=== PATIENT | male | born 1980 | race Caucasian/White ===

== ENCOUNTER 2016-06-19 21:27 | Emergency (ER) | payer MEDICARE, OTHER ==
[~2016-06-19] VITALS: Ht 180.3 cm; Wt 79.4 kg
[~2016-06-19 21:27] MED LIST: AMOX1TAB61 PO; NAPR500T PO
[2016-06-19 22:49] VITALS: BP 126/58
[2016-06-20] MEDS ORDERED: HYDR-971 PO
--- NOTE | 2016-06-20 | PHYS DOC ---
Past Medical History Past Medical History: No Pertinent History Past Surgical History: No Surgical History Alcohol Use: None Drug Use: None Adult General Chief Complaint Chief Complaint: UPPER EXTREMITY INJURY [facility] HPI Patient is a 36 year old male presents emergency room with a complaint of left shoulder and left elbow pain secondary to a fall approximately one and half to 2 weeks ago. Patient reports he is right-hand dominant. Patient denies any previous injuries to his left shoulder or left elbow. Patient has any history of bone forming disorders or arthritide's. Review of Systems Review of Systems Constitutional: Denies fever or chills [] Eyes: Denies change in visual acuity, redness, or eye pain [] HENT: Denies nasal congestion or sore throat [] Respiratory: Denies cough or shortness of breath [] Cardiovascular: No additional information not addressed in HPI [] GI: Denies abdominal pain, nausea, vomiting, bloody stools or diarrhea [] : Denies dysuria or hematuria [] Musculoskeletal: Denies back pain or joint pain [] Integument: Denies rash or skin lesions [] Neurologic: Denies headache, focal weakness or sensory changes [] Endocrine: Denies polyuria or polydipsia [] Allergies Allergies Allergies Coded Allergies Type Severity Reaction Last Updated Verified No Known Drug Allergies 01/21/16 No Physical Exam Physical Exam Constitutional: Well developed, well nourished, no acute distress, non-toxic appearance. Patient appears somewhat mentally handicapped based on his slow responses and processes with conversations. HENT: Normocephalic, atraumatic, bilateral external ears normal, oropharynx moist, no oral exudates, nose normal. [] Eyes: PERRLA, EOMI, conjunctiva normal, no discharge. [] Neck: Normal range of motion, no tenderness, supple, no stridor. [] Cardiovascular:Heart rate regular rhythm, no murmur [] Lungs & Thorax: Bilateral breath sounds clear to auscultation [] Abdomen: Bowel sounds normal, soft, no tenderness, no masses, no pulsatile masses. [] Skin: Warm, dry, no erythema, no rash. [] Back: No tenderness, no CVA tenderness. [] Extremities: Left shoulder, upper arm and elbow are normal in appearance. There is tenderness to palpation to the posterior lateral aspect of patient's left shoulder without palpable defect, deformity, instability or crepitus. Patient's left elbow with mild tenderness in the region of the lateral epicondylar region. Again, there is no palpable defect, deformity, instability or crepitus. Patient winces in pain when performing abduction and circumduction. He is able to perform it but complains of pain when doing so. He also complains of pain with flexion and extension at the elbow. Patient is able to perform these maneuvers. However, we'll stop when feeling the pain. Left upper extremity is neurovascularly intact with capillary refill less than 2 seconds in the fingers. Neurologic: Alert and oriented X 3, normal motor function, normal sensory function, no focal deficits noted. [] Psychologic: Affect normal, judgement normal, mood normal. [] Current Patient Data Vital Signs Vital Signs Date Time Temp Pulse Resp B/P Pulse Ox O2 Delivery O2 Flow Rate FiO2 06/19/16 22:49 98.2 78 18 96 Room Air 98.2 EKG EKG [] Radiology/Procedures Radiology/Procedures 3 views of patient's left shoulder and left elbow were performed with adequate technique. There is no evidence of acute bony injury pathologic soft tissue swelling. Course & Med Decision Making Course & Med Decision Making Patient was placed in a sling. He was educated on the possibility of a soft tissue injury and shoulder and recommendation for follow-up with orthopedics.] Dragon Disclaimer Dragon Disclaimer This electronic medical record was generated, in whole or in part, using a voice recognition dictation system. Departure Departure Impression: Primary Impression: Shoulder injury Disposition: 01 HOME, SELF-CARE Condition: GOOD Referrals: NO PCP (PCP) NIKO WHITE MD Patient Instructions: Arm Sling Use-Brief, Shoulder Pain, [id number] Additional Instructions: 1. The x-rays of your left shoulder and left elbow here today are normal. This does not exclude the possibility of a soft tissue injury to your shoulder. 2. Use a sling to rest your arm and shoulder. 3. Take the medication as prescribed. 4. Review the discharge instructions on reasons to return to the emergency department. 5. Call the orthopedic doctors number listed in this paperwork in the morning to schedule follow-up appointment for reevaluation. Scripts Hydrocodone/Apap 5-325 (Leola 5-325 Tablet)1 Each Tablet1 Tab PO PRN Q6HRS PRN PAIN #15 TAB Prov:NAS QURESHI 06/20/16 NAS QURESHI Jun 20, 2016 00:00
--- NOTE | 2016-06-20 08:03 | RAD ---
Indication persistent pain associated with a fall 2 weeks earlier. AP lateral and oblique views of the left elbow were obtained. No bony abnormality is seen. Significant joint fluid is not present
--- NOTE | 2016-06-20 08:05 | RAD ---
Indication persistent pain associated with a fall 2 weeks previously. Internally and externally rotated views of the left shoulder as well as a Y view were obtained. No bony abnormality is seen
== END 2016-06-20 00:08 | disposition home or self-care (01) ==
LOC: ER 21:27
DX: S49.92XA Unspecified injury of left shoulder and upper arm, initial encounter (principal); W19.XXXA Unspecified fall, initial encounter; Y93.89 Activity, other specified; Y99.8 Other external cause status; Y92.89 Other specified places as the place of occurrence of the external cause
CPT/HCPCS: 73030; 73080; 99284

== ENCOUNTER 2017-02-27 22:10 | Emergency (ER) | payer MEDICARE, OTHER ==
[~2017-02-27] VITALS: Ht 175.3 cm; Wt 81.6 kg
[~2017-02-27 22:10] MED LIST changes: +HYDR-971 PO
[2017-02-27 23:04] VITALS: BP 99/59
[2017-02-27] MEDS ORDERED: IBUPROFEN 800 MG TABLET. PO ONE (23:55)
[2017-02-27] MEDS ORDERED: HYDROcodone/APAP 5/325MG 1 TAB TABLET PO ONE (23:55)
[2017-02-27] MEDS ORDERED: CYCLOBENZAPRINE 10 MG TABLET. PO ONE (23:55)
[2017-02-27] MEDS ORDERED: METH-37 PO (23:56)
[2017-02-27] MEDS ORDERED: METH4TAB2 PO (23:56)
[2017-02-27] MEDS ORDERED: AMOX875T PO (23:56)
[2017-02-27] MEDS ORDERED: TRAM-48 PO (23:56)
--- NOTE | 2017-02-27 23:56 | PHYS DOC ---
Past Medical History Past Medical History: No Pertinent History Past Surgical History: No Surgical History Alcohol Use: None Drug Use: None Adult General Chief Complaint Chief Complaint: BACK PAIN - NO INJURY HPI HPI Patient is a 36 year old male with no significant medical history who presents today with chronic low back pain, sore throat and a cough that began 3 days ago. Patient states he has had subjective fevers. Patient denies any injuries. Denies any pain radiating to bilateral lower extremities. Denies any loss of bowel bladder function. Review of Systems Review of Systems Constitutional: fever Eyes: Denies change in visual acuity, redness, or eye pain [] HENT: sore throat [] Respiratory: cough Cardiovascular: No additional information not addressed in HPI [] GI: Denies abdominal pain, nausea, vomiting, bloody stools or diarrhea [] : Denies dysuria or hematuria [] Musculoskeletal: back pain Integument: Denies rash or skin lesions [] Neurologic: Denies headache, focal weakness or sensory changes [] Current Medications Current Medications Current Medications Medications (Trade) Dose Ordered Sig/Soila Start Time Stop Time Status Last Admin Dose Admin Acetaminophen/ Hydrocodone Bitart (Lortab 5/325) 2 tab 1X ONCE 02/27/17 23:45 02/27/17 23:46 UNV Cyclobenzaprine HCl (Flexeril) 10 mg 1X ONCE 02/27/17 23:45 02/27/17 23:46 UNV Ibuprofen (Motrin) 800 mg 1X ONCE 02/27/17 23:45 02/27/17 23:46 UNV Allergies Allergies Allergies Coded Allergies Type Severity Reaction Last Updated Verified No Known Drug Allergies 01/21/16 No Physical Exam Physical Exam Constitutional: Well developed, well nourished, no acute distress, non-toxic appearance. [] HENT: Normocephalic, atraumatic, bilateral external ears normal, oropharynx moist, no oral exudates, nose normal. [] mildly enlarged uvula with petechia Eyes: PERRLA, EOMI, conjunctiva normal, no discharge. [] Neck: Normal range of motion, no tenderness, supple, no stridor. [] Cardiovascular:Heart rate regular rhythm, no murmur [] Lungs & Thorax: Bilateral breath sounds clear to auscultation [] Abdomen: Bowel sounds normal, soft, no tenderness, no masses, no pulsatile masses. [] Skin: Warm, dry, no erythema, no rash. [] Back: Diffuse paraspinal muscle tenderness to the lumbar spine, no midline lumbar spine tenderness, no CVA tenderness. [] Extremities: No tenderness, no cyanosis, no clubbing, ROM intact, no edema. [] Neurologic: Alert and oriented X 3, normal motor function, normal sensory function, no focal deficits noted. [] Psychologic: Affect normal, judgement normal, mood normal. [] Current Patient Data Vital Signs Vital Signs Date Time Temp Pulse Resp B/P (MAP) Pulse Ox O2 Delivery O2 Flow Rate FiO2 02/27/17 23:04 101.7 81 20 97 Room Air 101.7 EKG EKG [] Radiology/Procedures Radiology/Procedures [] Course & Med Decision Making Course & Med Decision Making Pertinent Labs and Imaging studies reviewed. (See chart for details) Patient is in the ED with complaints of a sore throat and subjective fevers coughing and exacerbation of chronic low back pain. Temperature on arrival to the ED was 101.7, posterior pharynx with petechia. Patient was discharged with amoxicillin for 10 days. Discharged with Medrol Dosepak, discharged with Ultram and Robaxin for chronic back pain. Saltwater gargles recommended. Tessalon Perles for cough. Follow-up with primary care doctor in 1-2 weeks. Scot Disclaimer Scot Disclaimer This electronic medical record was generated, in whole or in part, using a voice recognition dictation system. Departure Departure Impression: Primary Impression: Cough Additional Impressions: Fever Pharyngitis, acute Back pain Disposition: 01 HOME, SELF-CARE Condition: STABLE Referrals: NO PCP (PCP) follow up with your doctor in one week or a doctor from the list provided Patient Instructions: Back Pain, Adult, Cough, Adult, [id number], Fever, Adult, Viral and Bacterial Pharyngitis Additional Instructions: You were seen for exacerbation of chronic back pain, sore throat, fever and coughing. Follow-up with your doctor or a doctor from the list provided in the next 7 days. Take Tylenol/ Motrin for fever. Take the prescribed medicines for back pain. Complete your antibiotics. Scripts Amoxicillin (AMOXICILLIN) 875 Mg Tablet 1 TAB PO BID, #20 TAB Prov: JENNA BERKOWITZ [employer]OR 02/27/17 Methylprednisolone (MEDROL) 4 Mg Tab.ds.pk 1 PKG PO UD, #1 PKG Prov: JENNA BERKOWITZ MAINE 02/27/17 Methocarbamol (ROBAXIN) 500 Mg Tablet 1 TAB PO TID, #30 TAB Prov: JENNA BERKOWITZ [employer] V[employer]OR 02/27/17 Tramadol Hcl (ULTRAM) 50 Mg Tablet 1 TAB PO Q6HRS, #30 TAB Prov: JENNA BERKOWITZ MAINE 02/27/17 Problem Qualifiers Additional Impressions: Fever Fever type: unspecified Qualified Codes: R50.9 - Fever, unspecified Pharyngitis, acute Pharyngitis/tonsillitis etiology: unspecified etiology Qualified Codes: J02.9 - Acute pharyngitis, unspecified Back pain Back pain location: low back pain Chronicity: chronic Back pain laterality : bilateral Sciatica presence: without sciatica Qualified Codes: M54.5 - Low back pain; G89.29 - Other chronic pain JENNA BERKOWITZ MAINE Feb 27, 2017 23:56
[2017-02-27] MEDS ORDERED: BENZ100C PO (23:58)
[2017-02-28 07:37] LABS: NEGATIVE OBC STREP NEG; POSITIVE OBC STREP POS
== END 2017-02-28 00:10 | disposition home or self-care (01) ==
LOC: ER 22:10
DX: G89.29 Other chronic pain (principal); M54.5 Low back pain; J02.9 Acute pharyngitis, unspecified
CPT/HCPCS: 87070; 87880; 99284

== ENCOUNTER 2018-01-01 21:08 | Emergency (ER) | payer MEDICARE, OTHER | END 2018-01-01 22:57 | disposition home or self-care (01) | LOC: ER 21:08 | DX: S20.212A Contusion of left front wall of thorax, initial encounter (principal); W22.8XXA Striking against or struck by other objects, initial encounter; Y93.89 Activity, other specified; Y99.8 Other external cause status; Y92.89 Other specified places as the place of occurrence of the external cause | CPT/HCPCS: 71101; 99284 ==

== ENCOUNTER 2018-05-17 13:20 | Emergency (ER) | payer MEDICARE ==
[~2018-05-17] VITALS: Ht 180.3 cm; Wt 77.1 kg
[~2018-05-17 13:20] MED LIST changes: +AMOX875T PO; +BENZ100C PO; +HYDR-3164 PO; -HYDR-971 PO; +METH-37 PO; +METH4TAB2 PO; +NAPR-683 PO; -NAPR500T PO; +TRAM-48 PO
[2018-05-17 13:45] VITALS: BP 110/57
[2018-05-17] MEDS ORDERED: IBUPROFEN 400 MG TABLET. PO ONE (14:00)
--- NOTE | 2018-05-17 14:41 | RAD ---
History: Fall on ice this morning. Comparison: None. Findings: Frontal and lateral views of the sacrum and coccyx, 3 images. No displaced fracture is identified. Impression: No acute sacrococcygeal fracture is identified. Electronically signed by: Gordon Mayo MD (05/17/2018 2:37 PM) [place] [id number]
--- NOTE | 2018-05-17 14:44 | PHYS DOC ---
Past Medical History Past Medical History: No Pertinent History Past Surgical History: No Surgical History Alcohol Use: None Drug Use: None Adult General Chief Complaint Chief Complaint: LOWER BACK PAIN OR INJURY HPI HPI Patient is a 37 year old male who presents with pain to his tailbone after he slipped and fell on the ice. He denies spontaneous loss of bowel or bladder, saddle numbness or foot drop. Rest helps relieve his pain. Review of Systems Review of Systems Constitutional: Denies fever or chills [] Eyes: Denies change in visual acuity, redness, or eye pain [] HENT: Denies nasal congestion or sore throat [] Respiratory: Denies cough or shortness of breath [] Cardiovascular: No additional information not addressed in HPI [] GI: Denies abdominal pain, nausea, vomiting, bloody stools or diarrhea [] : Denies dysuria or hematuria [] Musculoskeletal: See HPI Integument: Denies rash or skin lesions [] Neurologic: Denies headache, focal weakness or sensory changes [] Endocrine: Denies polyuria or polydipsia [] All other systems were reviewed and found to be within normal limits, except as documented in this note. Current Medications Current Medications Current Medications Medications (Trade) Dose Ordered Sig/Soila Start Time Stop Time Status Last Admin Dose Admin Ibuprofen (Motrin) 800 mg 1X ONCE 05/17/18 14:00 05/17/18 14:01 DC 05/17/18 14:07 800 MG Allergies Allergies Allergies Coded Allergies Type Severity Reaction Last Updated Verified No Known Drug Allergies 01/21/16 No Physical Exam Physical Exam Constitutional: Well developed, well nourished, no acute distress, non-toxic appearance. [] Cardiovascular:Heart rate regular rhythm, no murmur [] Lungs & Thorax: Bilateral breath sounds clear to auscultation [] Abdomen: Bowel sounds normal, soft, no tenderness, no masses, no pulsatile masses. [] Skin: Warm, dry, no erythema, no rash. [] Back: tenderness to coccyx with palpation, no gross deformities or step offs noted, no CVA tenderness. [] Extremities: No tenderness, no cyanosis, no clubbing, ROM intact, no edema. [] Neurologic: Alert and oriented X 3, normal motor function, normal sensory function, no focal deficits noted. [] Psychologic: Affect normal, judgement normal, mood normal. [] Current Patient Data Vital Signs Vital Signs Date Time Temp Pulse Resp B/P (MAP) Pulse Ox O2 Delivery O2 Flow Rate FiO2 05/17/18 13:45 97.8 63 16 110/57 (74) 99 Room Air 97.8 EKG EKG [] Radiology/Procedures Radiology/Procedures []PATIENT: TARA JIMENEZ CACCOUNT: [id number]#: [id number] : 1980 LOCATION: ER AGE: 37 SEX: M EXAM STATUS: REG ER ORD. PHYSICIAN: LINDA JENKINS APRN REASON: fell on ice PROCEDURE: SACRUM & COCCYX 3V History: Fall on ice this morning. Comparison: None. Findings: Frontal and lateral views of the sacrum and coccyx, 3 images. No displaced fracture is identified. Impression: No acute sacrococcygeal fracture is identified. Electronically signed by: Gordon Mayo MD (05/17/2018 2:37 PM) [facility] DICTATED and SIGNED BY: GORDON MAYO MD DATE: 05/17/18 1435 Course & Med Decision Making Course & Med Decision Making Pertinent Labs and Imaging studies reviewed. (See chart for details) [] Dragon Disclaimer Dragon Disclaimer This electronic medical record was generated, in whole or in part, using a voice recognition dictation system. Departure Departure Impression: Primary Impression: Back pain Disposition: HOME, SELF-CARE Condition: STABLE Referrals: NO PCP (PCP) Patient Instructions: Tailbone Injury, [id number] Additional Instructions: You may take ibuprofen or Tylenol for pain. Follow-up with your primary care provider in one week for recheck if not improving or return to the emergency department if worsening. LINDA JENKINS APRN May 17, 2018 14:44
== END 2018-05-17 15:02 | disposition home or self-care (01) ==
LOC: ER 13:20
DX: M54.5 Low back pain (principal); G89.11 Acute pain due to trauma; W00.0XXA Fall on same level due to ice and snow, initial encounter; Y93.89 Activity, other specified; Y92.89 Other specified places as the place of occurrence of the external cause; Y99.8 Other external cause status
CPT/HCPCS: 72220; 99284

== ENCOUNTER 2019-01-16 22:14 | Emergency (ER) | payer MEDICARE ==
[~2019-01-16] VITALS: Ht 188 cm; Wt 81.6 kg
--- NOTE | 2019-01-16 22:27 | PHYS DOC ---
Past Medical History Past Medical History: No Pertinent History (JENNA BREKOWITZ APRN) Past Surgical History: No Surgical History (JENNA BERKOWITZ APRN) Alcohol Use: None Drug Use: None (JENNA BERKOWITZ APRN) Adult General HPI HPI Patient is a 38 year old male with no significant medical history who presents to the ED today complaining of generalized weakness that began today in the evening after being outside for 10-13 hours in and out. Patient denies any chest pain or shortness of breath. He is also complaining of a laceration on the left foot, he states he was mowing his lawn when he stepped on a piece of glass with no shoes. He states he drank 2 shots of whiskey prior to coming to the ED. (JENNA BERKOWITZ APRN) Review of Systems Review of Systems Constitutional: Reports generalized weakness. Denies fever or chills [] Eyes: Denies change in visual acuity, redness, or eye pain [] HENT: Denies nasal congestion or sore throat [] Respiratory: Denies cough or shortness of breath [] Cardiovascular: No additional information not addressed in HPI [] GI: Denies abdominal pain, nausea, vomiting, bloody stools or diarrhea [] : Denies dysuria or hematuria [] Musculoskeletal: Denies back pain or joint pain [] Integument: Reports laceration on the left foot Neurologic: Denies headache, focal weakness or sensory changes [] All other systems were reviewed and found to be within normal limits, except as documented in this note. (JENNA BERKOWITZ APRN) Current Medications Current Medications Current Medications Medications (Trade) Dose Ordered Sig/Soila Start Time Stop Time Status Last Admin Dose Admin Diphtheria/ Tetanus/Acell Pertussis (Boostrix) 0.5 ml STK-MED ONCE 01/16/19 23:48 01/16/19 23:49 DC Potassium Chloride (Klor-Con) 40 meq 1X ONCE 01/16/19 23:30 01/16/19 23:31 DC 01/16/19 23:22 40 MEQ Sodium Chloride 1,000 ml @ 1,000 mls/hr 1X ONCE 01/16/19 23:00 01/16/19 23:59 DC 01/16/19 22:32 1,000 MLS/HR (YURIDIA ADKINS MD) Allergies Allergies Allergies Coded Allergies Type Severity Reaction Last Updated Verified No Known Drug Allergies 01/21/16 No (YURIDIA ADKINS MD) Physical Exam Physical Exam Constitutional: Well developed, well nourished, no acute distress, non-toxic appearance. [] HENT: Normocephalic, atraumatic, bilateral external ears normal, oropharynx moist, no oral exudates, nose normal. [] Eyes: PERRLA, EOMI, conjunctiva normal, no discharge. [] Neck: Normal range of motion, no tenderness, supple, no stridor. [] Cardiovascular:Heart rate regular rhythm, no murmur [] Lungs & Thorax: Bilateral breath sounds clear to auscultation [] Abdomen: Bowel sounds normal, soft, no tenderness, no masses, no pulsatile masses. [] Skin: Warm, dry, left foot along the distal third and fourth metatarsals with a laceration superficial in nature approximately 1 cm long. Back: No tenderness, no CVA tenderness. [] Extremities: No tenderness, no cyanosis, no clubbing, ROM intact, no edema. [] Neurologic: Alert and oriented X 3, normal motor function, normal sensory function, no focal deficits noted. Cranial nerves II through XII intact Psychologic: Affect normal, judgement normal, mood normal. [] (JENNA BERKOWITZ APRN) Current Patient Data Vital Signs Vital Signs Date Time Temp Pulse Resp B/P (MAP) Pulse Ox O2 Delivery O2 Flow Rate FiO2 01/16/19 23:46 65 96 01/16/19 22:15 99.4 16 136/78 (97) Room Air 99.4 (YURIDIA ADKINS MD) Lab Values Laboratory Tests Test 01/16/19 22:22 01/16/19 23:20 White Blood Count 9.2 x10^3/uL (4.0-11.0) Red Blood Count 4.47 x10^6/uL (4.30-5.70) Hemoglobin 14.9 g/dL (13.0-17.5) Hematocrit 41.9 % (39.0-53.0) Mean Corpuscular Volume 94 fL (79-100) Mean Corpuscular Hemoglobin 33 pg (25-35) Mean Corpuscular Hemoglobin Concent 36 g/dL (31-37) Red Cell Distribution Width 12.6 % (11.5-14.5) Platelet Count 189 x10^3/uL (140-400) Neutrophils (%) (Auto) 57 % (31-73) Lymphocytes (%) (Auto) 25 % (24-48) Monocytes (%) (Auto) 9 % (0-9) Eosinophils (%) (Auto) 8 % (0-3) H Basophils (%) (Auto) 1 % (0-3) Neutrophils # (Auto) 5.3 x10^3/uL (1.8-7.7) Lymphocytes # (Auto) 2.3 x10^3/uL (1.0-4.8) Monocytes # (Auto) 0.8 x10^3/uL (0.0-1.1) Eosinophils # (Auto) 0.7 x10^3/uL (0.0-0.7) Basophils # (Auto) 0.1 x10^3/uL (0.0-0.2) Sodium Level 145 mmol/L (136-145) Potassium Level 3.2 mmol/L (3.5-5.1) L Chloride Level 107 mmol/L (98-107) Carbon Dioxide Level 26 mmol/L (21-32) Anion Gap 12 (6-14) Blood Urea Nitrogen 8 mg/dL (8-26) Creatinine 1.0 mg/dL (0.7-1.3) Estimated GFR (Cockcroft-Gault) 83.6 BUN/Creatinine Ratio 8 (6-20) Glucose Level 117 mg/dL (70-99) H Calcium Level 8.5 mg/dL (8.5-10.1) Magnesium Level 1.9 mg/dL (1.8-2.4) Total Bilirubin 0.3 mg/dL (0.2-1.0) Aspartate Amino Transferase (AST) 22 U/L (15-37) Alanine Aminotransferase (ALT) 24 U/L (16-63) Alkaline Phosphatase 82 U/L (46-116) Creatine Kinase 278 U/L (39-308) Creatine Kinase MB (Mass) 2.5 ng/mL (0.0-3.6) Creatine Kinase MB Relative Index 0.9 % (0-4) Troponin I Quantitative < 0.017 ng/mL (0.000-0.055) FD-Dqw-M-Type Natriuretic Peptide 24 pg/mL (0-124) Total Protein 7.0 g/dL (6.4-8.2) Albumin 3.7 g/dL (3.4-5.0) Albumin/Globulin Ratio 1.1 (1.0-1.7) Lipase 95 U/L (73-393) Thyroid Stimulating Hormone (TSH) 3.747 uIU/mL (0.358-3.74) H Ethyl Alcohol Level < 10 mg/dL (0-10) Urine Collection Type Unknown Urine Color Yellow Urine Clarity Clear Urine pH 6.0 Urine Specific [place] 1.020 Urine Protein Negative mg/dL (NEG-TRACE) Urine Glucose (UA) Negative mg/dL (NEG) Urine Ketones (Stick) Negative mg/dL (NEG) Urine Blood Trace (NEG) Urine Nitrite Negative (NEG) Urine Bilirubin Negative (NEG) Urine Urobilinogen Dipstick 2.0 mg/dL (0.2 mg/dL) Urine Leukocyte Esterase Negative (NEG) Urine RBC Occ /HPF (0-2) Urine WBC 0 /HPF (0-4) Urine Squamous Epithelial Cells Occ /LPF Urine Bacteria 0 /HPF (0-FEW) Urine Mucus Marked /LPF Urine Opiates Screen Neg (NEG) Urine Methadone Screen Neg (NEG) Urine Barbiturates Neg (NEG) Urine Phencyclidine Screen Neg (NEG) Urine Amphetamine/Methamphetamine Neg (NEG) Urine Benzodiazepines Screen Neg (NEG) Urine Cocaine Screen Neg (NEG) Urine Cannabinoids Screen Neg (NEG) Urine Ethyl Alcohol Neg (NEG) Laboratory Tests 01/16/19 22:22 Laboratory Tests 01/16/19 22:22 (YURIDIA ADKINS MD) Lab Values Laboratory Tests Test 01/16/19 22:22 White Blood Count 9.2 x10^3/uL (4.0-11.0) Red Blood Count 4.47 x10^6/uL (4.30-5.70) Hemoglobin 14.9 g/dL (13.0-17.5) Hematocrit 41.9 % (39.0-53.0) Mean Corpuscular Volume 94 fL (79-100) Mean Corpuscular Hemoglobin 33 pg (25-35) Mean Corpuscular Hemoglobin Concent 36 g/dL (31-37) Red Cell Distribution Width 12.6 % (11.5-14.5) Platelet Count 189 x10^3/uL (140-400) Neutrophils (%) (Auto) 57 % (31-73) Lymphocytes (%) (Auto) 25 % (24-48) Monocytes (%) (Auto) 9 % (0-9) Eosinophils (%) (Auto) 8 % (0-3) H Basophils (%) (Auto) 1 % (0-3) Neutrophils # (Auto) 5.3 x10^3/uL (1.8-7.7) Lymphocytes # (Auto) 2.3 x10^3/uL (1.0-4.8) Monocytes # (Auto) 0.8 x10^3/uL (0.0-1.1) Eosinophils # (Auto) 0.7 x10^3/uL (0.0-0.7) Basophils # (Auto) 0.1 x10^3/uL (0.0-0.2) Sodium Level 145 mmol/L (136-145) Potassium Level 3.2 mmol/L (3.5-5.1) L Chloride Level 107 mmol/L (98-107) Carbon Dioxide Level 26 mmol/L (21-32) Anion Gap 12 (6-14) Blood Urea Nitrogen 8 mg/dL (8-26) Creatinine 1.0 mg/dL (0.7-1.3) Estimated GFR (Cockcroft-Gault) 83.6 BUN/Creatinine Ratio 8 (6-20) Glucose Level 117 mg/dL (70-99) H Calcium Level 8.5 mg/dL (8.5-10.1) Magnesium Level 1.9 mg/dL (1.8-2.4) Total Bilirubin 0.3 mg/dL (0.2-1.0) Aspartate Amino Transferase (AST) 22 U/L (15-37) Alanine Aminotransferase (ALT) 24 U/L (16-63) Alkaline Phosphatase 82 U/L (46-116) Creatine Kinase 278 U/L (39-308) Creatine Kinase MB (Mass) 2.5 ng/mL (0.0-3.6) Creatine Kinase MB Relative Index 0.9 % (0-4) Troponin I Quantitative < 0.017 ng/mL (0.000-0.055) XV-Mab-B-Type Natriuretic Peptide 24 pg/mL (0-124) Total Protein 7.0 g/dL (6.4-8.2) Albumin 3.7 g/dL (3.4-5.0) Albumin/Globulin Ratio 1.1 (1.0-1.7) Lipase 95 U/L (73-393) Thyroid Stimulating Hormone (TSH) 3.747 uIU/mL (0.358-3.74) H Ethyl Alcohol Level < 10 mg/dL (0-10) Laboratory Tests 01/16/19 22:22 Laboratory Tests 01/16/19 22:22 (JENNA BERKOWITZ APRN) EKG EKG [address] Adkins sinus rhythm HR 63 no STEMI[] (JENNA BERKOWITZ APRN) Radiology/Procedures Radiology/Procedures []PROCEDURE: PORTABLE CHEST 1V Exam: Chest one view INDICATION: Weakness TECHNIQUE: Frontal view of the chest Comparisons: January 01, 2018 FINDINGS: The cardiomediastinal silhouette and pulmonary vessels are within normal limits. The lung and pleural spaces are clear. IMPRESSION: No acute cardiopulmonary process. Electronically signed by: Danay Rueda MD (01/16/2019 10:45 PM) [facility] DICTATED and SIGNED BY: DANAY RUEDA MD DATE: 01/16/199 PROCEDURE: FOOT LEFT 3V Exam: Left foot 3 views INDICATION: Weakness TECHNIQUE: Frontal, lateral and oblique views of the left foot Comparisons: None FINDINGS: Bone mineralization and development are normal. No acute or healed fractures. Soft tissues are unremarkable. Joint spaces are well-maintained. IMPRESSION: No acute osseous abnormality. Electronically signed by: Danay Rueda MD (01/16/2019 10:43 PM) [facility] DICTATED and SIGNED BY: DANAY RUEDA MD DATE: 01/16/190 (JENNA BERKOWITZ APRN) Course & Med Decision Making Course & Med Decision Making Pertinent Labs and Imaging studies reviewed. (See chart for details) This is a 38-year-old male patient who presents to the ED today complaining of generalized weakness, he was outside today for 10-13 hours but states in and out of the house. He also stepped on a piece of glass and has a laceration on the left foot. EKG is negative, CBC with no acute findings, CMP with potassium of 3.2, patient was given oral potassium replacement. Troponin is normal, CK is normal. Alcohol level is normal. Chest x-ray is negative, left foot x-ray is negative. Patient was also given a liter of fluid. Patient is in no distress. Was discharged to home. Neosporin recommended to the laceration site. Instructed to push fluids and avoid being outside for long hours. Follow-up with PCP in one week. (JENNA BERKOWITZ APRN) Course & Med Decision Making Staff Physician Addendum: I was working in the ER during the course of this patient's visit. I was av ailable for consultation as needed, but I was not directly involved in the care of this patient. (YURIDIA ADKINS MD) Dragon Disclaimer Dragon Disclaimer This electronic medical record was generated, in whole or in part, using a voice recognition dictation system. (JENNA BERKOWITZ APRN) Departure Departure Impression: Primary Impression: Laceration of left foot Additional Impression: Generalized weakness Disposition: 01 HOME, SELF-CARE Condition: STABLE Referrals: NO PCP (PCP) Follow-up with your doctor in 1-2 weeks Patient Instructions: Laceration Care, Adult, Weakness, [id number] Additional Instructions: You were evaluated in the emergency room for generalized weakness and a laceration on the left foot. Keep the laceration site clean and dry. Apply Neosporin to the area twice a day. Try and protect the area by wearing shoes. Please follow-up with your doctor in the next 1-2 weeks. Avoid being outside in the heat for long hours. Please push fluids. Problem Qualifiers Primary Impression: Laceration of left foot Encounter type: initial encounter Qualified Codes: S91.312A - Laceration without foreign body, left foot, initial encounter JENNA BERKOWITZ APRN Jan 16, 2019 22:27 YURIDIA ADKINS MD Jan 17, 2019 18:19
[2019-01-16 22:36] LABS: BASO # 0.1 x10^3/uL (0.0-0.2); BASO % 1 % (0-3); EOS # 0.7 x10^3/uL (0.0-0.7); EOS % 8 % (0-3); HEMATOCRIT 41.9 % (39.0-53.0); HEMOGLOBIN 14.9 g/dL (13.0-17.5); LYMPH # 2.3 x10^3/uL (1.0-4.8); LYMPH % 25 % (24-48); MEAN CORPUSCULAR HEMOGLOBIN 33 pg (25-35); MEAN CORPUSCULAR HGB CONC 36 g/dL (31-37); MEAN CORPUSCULAR VOLUME 94 fL (79-100); MONO # 0.8 x10^3/uL (0.0-1.1); MONO % 9 % (0-9); NEUT # 5.3 x10^3/uL (1.8-7.7); NEUT % 57 % (31-73); PLATELET COUNT 189 x10^3/uL (140-400); RED BLOOD COUNT 4.47 x10^6/uL (4.30-5.70); RED CELL DISTRIBUTION WIDTH 12.6 % (11.5-14.5); WHITE BLOOD COUNT 9.2 x10^3/uL (4.0-11.0)
--- NOTE | 2019-01-16 22:46 | RAD ---
Exam: Left foot 3 views INDICATION: Weakness TECHNIQUE: Frontal, lateral and oblique views of the left foot Comparisons: None FINDINGS: Bone mineralization and development are normal. No acute or healed fractures. Soft tissues are unremarkable. Joint spaces are well-maintained. IMPRESSION: No acute osseous abnormality. Electronically signed by: Danay Lazaro MD (01/16/2019 10:43 PM) [facility]
--- NOTE | 2019-01-16 22:48 | RAD ---
Exam: Chest one view INDICATION: Weakness TECHNIQUE: Frontal view of the chest Comparisons: January 01, 2018 FINDINGS: The cardiomediastinal silhouette and pulmonary vessels are within normal limits. The lung and pleural spaces are clear. IMPRESSION: No acute cardiopulmonary process. Electronically signed by: Danay Lazaro MD (01/16/2019 10:45 PM) [facility]
[2019-01-16 22:49] LABS: CALCIUM 8.5 mg/dL (8.5-10.1); GFR 83.6; POTASSIUM 3.2 mmol/L (3.5-5.1)
[2019-01-16 22:59] LABS: ALBUMIN 3.7 g/dL (3.4-5.0); ALBUMIN/GLOBULIN RATIO 1.1 (1.0-1.7); MAGNESIUM 1.9 mg/dL (1.8-2.4); TOTAL BILIRUBIN 0.3 mg/dL (0.2-1.0)
[2019-01-16] MEDS ORDERED: IV NORMAL SALINE 1000ML BAG 1,000 ML IV ONE (23:00)
[2019-01-16 23:30] LABS: BILIRUBIN,URINE NEGATIVE (NEG); CLARITY,URINE CLEAR; COLOR,URINE YELLOW; NITRITE,URINE NEGATIVE (NEG); PROTEIN,URINE NEGATIVE (NEG-TRACE)
[2019-01-16] MEDS ORDERED: POTASSIUM CHLORIDE 20 MEQ TABLET.ER. PO ONE (23:30)
[2019-01-16 23:36] LABS: BARBITURATES NEG (NEG); BENZODIAZEPINES NEG (NEG); CANNABINOIDS NEG (NEG); COCAINE NEG (NEG); METHADONE NEG (NEG); OPIATES NEG (NEG); PHENCYCLIDINE NEG (NEG)
[2019-01-16 23:37] LABS: BACTERIA,URINE 0 /HPF (0-FEW); RBC,URINE OCC /HPF (0-2); SQUAMOUS EPITHELIAL CELL,UR OCC /LPF; WBC,URINE 0 /HPF (0-4)
[2019-01-16 23:40] LABS: AMPHETAMINE/METHAMPHETAMINE NEG (NEG)
[2019-01-16 23:46] VITALS: BP 102/71
[2019-01-16] MEDS ORDERED: DIPHTH,PERTUSS(ACELL),TET TOX 0.5 ML DISP.SYRIN. VAX IM ONE (23:48)
[2019-01-17] MEDS ORDERED: DIPHTH,PERTUSS(ACELL),TET TOX 0.5 ML DISP.SYRIN. VAX IM ONE
--- NOTE | 2019-01-17 07:03 | EKG ---
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
== END 2019-01-16 23:55 | disposition home or self-care (01) ==
LOC: ER 22:14
DX: S91.312A Laceration without foreign body, left foot, initial encounter (principal); R53.1 Weakness; W25.XXXA Contact with sharp glass, initial encounter; Y93.89 Activity, other specified; Y92.89 Other specified places as the place of occurrence of the external cause; Y99.8 Other external cause status
CPT/HCPCS: 36415; 71045; 73630; 80053; 80307; 81001; 82553; 83690; 83735; 83880; 84443; 84484; 85025; 90471; 90715; 93005; 99285; G0480; J7030

== ENCOUNTER 2019-05-25 13:53 | Emergency (ER) | payer MEDICAID, MEDICARE ==
[~2019-05-25] VITALS: Ht 180.3 cm; Wt 85.7 kg
[2019-05-25 14:43] VITALS: BP 95/58
[2019-05-25] MEDS ORDERED: KETOROLAC 30 MG/ML VIAL. IM STA (15:00)
--- NOTE | 2019-05-25 15:18 | PHYS DOC ---
Past Medical History Past Medical History: No Pertinent History Past Surgical History: No Surgical History Alcohol Use: None Drug Use: None Adult General Chief Complaint Chief Complaint: LOWER BACK PAIN OR INJURY HPI HPI Patient is a 39 year old male who presents with lower back pain that started around 7:00 PM last night. The patient also states that he's been having fever, and body aches. Patient reports his pain level is 9 out of 10 in severity. The patient reports chronic back pain. Review of Systems Review of Systems Constitutional: Reports fever and body aches Eyes: Denies change in visual acuity, redness, or eye pain [] HENT: Denies nasal congestion or sore throat [] Respiratory: Denies cough or shortness of breath [] Cardiovascular: No additional information not addressed in HPI [] GI: Denies abdominal pain, nausea, vomiting, bloody stools or diarrhea [] : Denies dysuria or hematuria [] Musculoskeletal: Reports back pain (lower) Integument: Denies rash or skin lesions [] Neurologic: Denies headache, focal weakness or sensory changes [] Endocrine: Denies polyuria or polydipsia [] Complete systems were reviewed and found to be within normal limits, except as documented in this note. Current Medications Current Medications Current Medications Medications (Trade) Dose Ordered Sig/Soila Start Time Stop Time Status Last Admin Dose Admin Ketorolac Tromethamine (Toradol 30mg Vial) 30 mg 1X STAT 05/25/19 15:00 05/25/19 15:03 DC 05/25/19 15:15 30 MG Allergies Allergies Allergies Coded Allergies Type Severity Reaction Last Updated Verified No Known Drug Allergies 01/21/16 No Physical Exam Physical Exam Constitutional: Well developed, well nourished, no acute distress, non-toxic appearance. [] HENT: Normocephalic, atraumatic, bilateral external ears normal, oropharynx moist, no oral exudates, nose normal. [] Eyes: PERRLA, EOMI, conjunctiva normal, no discharge. [] Neck: Normal range of motion, no tenderness, supple, no stridor. [] Cardiovascular:Heart rate regular rhythm, no murmur [] Lungs & Thorax: Bilateral breath sounds clear to auscultation [] Abdomen: Bowel sounds normal, soft, no tenderness, no masses, no pulsatile masses. [] Skin: Warm, dry, no erythema, no rash. [] Back: Left lower back pain, tender on palpation. Extremities: No tenderness, no cyanosis, no clubbing, ROM intact, no edema. [] Neurologic: Alert and oriented X 3, normal motor function, normal sensory function, no focal deficits noted. [] Psychologic: Affect normal, judgement normal, mood normal. [] Current Patient Data Vital Signs Vital Signs Date Time Temp Pulse Resp B/P (MAP) Pulse Ox O2 Delivery O2 Flow Rate FiO2 05/25/19 14:43 100.6 85 14 95/58 (70) 97 Room Air 100.6 Lab Values Laboratory Tests Test 05/25/19 14:56 Influenza Type A Antigen Negative (NEGATIVE) Influenza Type B Antigen Negative (NEGATIVE) EKG EKG [] Radiology/Procedures Radiology/Procedures [] Course & Med Decision Making Course & Med Decision Making Pertinent Labs and Imaging studies reviewed. (See chart for details) Will get flu test and give Toradol. Flu test is negative. Likely he has a viral illness and a back strain. Will also write for muscle relaxers. Dragon Disclaimer Dragon Disclaimer This electronic medical record was generated, in whole or in part, using a voice recognition dictation system. Departure Departure Impression: Primary Impression: Systemic viral illness Additional Impression: Lower back pain Disposition: 01 HOME, SELF-CARE Condition: STABLE Referrals: NO PCP (PCP) Patient Instructions: Back Pain, Adult, Fever Additional Instructions: Thank you for visiting [facility]. We appreciate you trusting us with your care. If any additional problems come up don't hesitate to return to visit us. Please follow up with your primary care provider so they can plan additional care if needed and know about the problem that you had. If symptoms worsen come back to the Emergency Department. Any concerning symptoms that start such as chest pain, shortness of air, weakness or numbness on one side of the body, running high fevers or any other concerning symptoms return to the ER. Scripts Orphenadrine Citrate (ORPHENADRINE CITRATE) 100 Mg Tablet.er 100 MG PO BID PRN for MUSCLE PAIN for 10 Days, #20 TAB.SR Please be aware that this medication causes drowsiness. Do not operate machinery on this medication. 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
[2019-05-25 15:23] LABS: INFLUENZA A PATIENT NEGATIVE (NEGATIVE); INFLUENZA B PATIENT NEGATIVE (NEGATIVE)
[2019-05-25] MEDS ORDERED: ORPH100T PO (15:41)
== END 2019-05-25 15:46 | disposition home or self-care (01) ==
LOC: ER 13:53
DX: B34.8 Other viral infections of unspecified site (principal); M54.5 Low back pain; G89.29 Other chronic pain
CPT/HCPCS: 87804; 96372; 99284; J1885